=== PATIENT | female | born 1940 | race Caucasian/White ===

== ENCOUNTER 2016-07-31 00:38 | Emergency (ER) | payer MEDICARE ==
[~2016-07-31] VITALS: Ht 162.6 cm; Wt 81.8 kg
[~2016-07-31 00:38] MED LIST: BUPR150T9 PO; CITA10TA9 PO; HYDR25TA4 PO; LEVO112T4 PO
[2016-07-31 00:44] VITALS: BP 140/68; PULSE 73; RESP 16; O2SAT 96
--- NOTE | 2016-07-31 00:50 | ED.REPORT ---
HPI-Extremity Problem Lower Date of Service Jul 31, 2016 ED Provider: Yoel Loera MD A 75 year old female with a history of hypertension and recent ankle sprain presents to the ED complaining of left ankle pain. The pt was walking into a theater today when she tripped on a stair and landed on her ankle. The ankle was not especially painful at first and she was able to walk on it, but the pain and swelling have increased significantly within the last two hours. Nursing Notes Stated Complaint: L ANKLE PAIN Chief Complaint: Extremity Trauma Nursing Notes Reviewed: Yes Allergies: Coded Allergies: Penicillins (Verified Allergy, Unknown, 01/23/16) codeine (Verified Allergy, Unknown, 01/23/16) tetracycline (Verified Allergy, Unknown, 01/23/16) Uncoded Allergies: Codeine (Allergy, Unknown, 04/19/05) Penicillin (Allergy, Unknown, 04/19/05) Tetracycline (Allergy, Unknown, 04/19/05) Scheduled Bupropion HCl (Zyban) 150 Mg Tablet.er 150 MG PO DAILY Citalopram (Citalopram) 10 Mg Tablet 10 MG PO DAILY Hydrochlorothiazide (Hydrochlorothiazide) 25 Mg Tablet 25 MG PO DAILY Levothyroxine (Levothyroxine) 112 Mcg Tablet 112 MCG PO DAILY Scheduled PRN Ibuprofen (Ibuprofen) 400 Mg Tablet 400 MG PO QID PRN PRN For Pain General Time Seen by MD: 00:49 Chief Complaint Ankle injury left Hx Obtained From: Patient Arrived By: Walk-in Onset Occurred: 1 - 4 hours ago Symptom Duration: Since onset Recent Healthcare: No recent doctor visit, No recent hospitalization Similar Sx Previous: No Past Medical History Past Medical History Cataracts Depression Recent ankle fracture Past Surgical History Cataracts surgery bilateral laser surgery on the left Smoking History Unknown if Ever Smoker Ambulatory Status Independent Review of Systems Constitutional: Denies: Fever Musculoskeletal: Reports: Extremity pain, Denies: Back pain, Neck pain Skin: Denies Rash Neurologic: Denies: Change LOC, Headache Complete sys rev & neg: except as marked. Respiratory: Denies: Non-productive cough Cardiovascular: Denies: Chest pain GI: Denies: Abdominal pain Physical Exam Initial Vital Signs Vital Signs (First) Date Time Temp Pulse Resp B/P Pulse Ox O2 Delivery O2 Flow Rate FiO2 07/31/16 00:44 37.2 73 16 140/68 96 Room Air Initial VS: Reviewed Lower Extremity / Pelvis / MS: Atraumatic, Full range of motion Ankle / Foot: No deformity tender under lateral malleolus with swelling intact sensation joint is grossly stable General/Constitutional: Awake, Alert Respiratory / Chest: Atraumatic, Breath sounds NL, Breath sounds = bilat, No respiratory distress Cardiovascular: Heart rate NL, Regular rhythm, Heart sounds NL Skin: Atraumatic, Color NL, No rash, Warm, Dry Neurologic: Oriented X3, Speech NL, No motor deficits, No sensory deficits Head / Eyes: Atraumatic, Normocephalic, PERRL, EOMI ENT: Atraumatic, Airway patent, Mucous membranes moist Neck: Atraumatic, Supple, Full range of motion Abdomen: Atraumatic, Soft, Non-tender Back: Atraumatic, Full range of motion Upper Extremity / MS: Atraumatic, Full range of motion Psychiatric: Affect NL, Mood NL Interpretation & Diagnostics X-Ray Interpretation Xray Interpretation: no acute findings X-Ray Ordered: Ankle left Interpretation / Wet Read by: Wet read ED physician Re-Eval/Medical Decision Med Decision/Clinical Course 75-year-old with a prior sprain stepped off a step in a dark movie theater and sprained her ankle. There is minimal swelling. X-rays negative. Home with Aircast splint and walker. Discharged in stable condition. Source of Hx: Old records Re-Evaluation/Progress : Time of Eval: 00:49 Patient Status: Condition improved Re-Evaluation/Progress Note: Pt informed of radiology results, diagnosis, and the plan for discharge during the initial interview. The pt understands and agrees with the plan. All questions are addressed at this time. Counseled Regarding: Diagnosis, Lab results, Need for follow-up, When/why to return to ED Discharge & Departure Impression: Primary Impression: Sprained ankle Disposition: Home Discharge Condition All VS Reviewed: Yes Condition: Stable Patient Instructions: Ankle Sprain (GEN), How to Choose and Use a Walker (GEN) Additional Instructions: Ibuprofen as needed for pain four times daily. Nonweightbearing as long as tender. Wear your cast splint over a tall sock or an Carloz wrap, then inside his shoe. Remove the wrap and the cast splint before going to bed. Follow-up with your doctor in the office. Elevate the ankle whenever possible. Ice frequently in the first twenty-four hours. Return if any immediate issues over the weekend. Referrals: Sheryl Salas MD (PCP) Scribe Attestation Portions of this note were transcribed by Arianna Head. I, Dr. Loera personally performed the history, physical exam and medical decision-making; I reviewed and confirmed the accuracy of the information in the transcribed note. Signed by: Mckenzie Conway, 07/31/2016 and 0117. copies to: Sheryl Salas MD, Christopher W MD Jul 31, 2016 00:50 ARIANNA HEAD Jul 31, 2016 00:57
[2016-07-31] MEDS ORDERED: IBUP400T22 PO (01:42)
--- NOTE | 2016-07-31 09:08 | DRSVH ---
PROCEDURE: X-RAY LEFT ANKLE, MINIMUM THREE VIEWS ([id number]) INDICATIONS: twisted ankle TECHNIQUE: 3 views of the ankle were acquired. COMPARISON: None. FINDINGS: Bones: No fractures or dislocations. Ankle mortise is normally aligned. No suspicious bony lesions . 1 x 3 mm ossification is noted adjacent to the medial malleolus which could represent a small ossif ication center versus chronic small avulsion injury. Calcaneal bone spurs are noted. Soft tissues: No tibiotalar joint effusion. Achilles tendon appears normal. IMPRESSION: No acute fracture. No acute osseous lesion. If symptoms and/or clinical suspicion for pa thology persists, further assessment with repeat radiographs or advanced imaging (e.g. CT, MRI or bon e scan) may be helpful for further assessment. Dictated by: Berenice Ellsworth MD, PhD on 07/31/2016 at 9:04 Approved by: Berenice Ellsworth MD, PhD on 07/31/2016 at 9:06
== END 2016-07-31 01:54 | disposition home or self-care (01) ==
LOC: SED 00:38
DX: S93.402A Sprain of unspecified ligament of left ankle, initial encounter (principal); W18.43XA Slipping, tripping and stumbling without falling due to stepping from one level to another, initial encounter; Y92.254 Theater (live) as the place of occurrence of the external cause; Y93.01 Activity, walking, marching and hiking; Y99.8 Other external cause status; I10 Essential (primary) hypertension; Z87.828 Personal history of other (healed) physical injury and trauma; Z88.0 Allergy status to penicillin; Z88.5 Allergy status to narcotic agent; Z88.1 Allergy status to other antibiotic agents